=== PATIENT | male | born 1950 ===

== ENCOUNTER 2020-12-31 08:48 | Outpatient (REF) | payer MEDICARE, SELFPAY ==
--- NOTE | ~2020-12-31 | XR_ITS ---
EXAMINATION: KNEE X-RAY CLINICAL INFORMATION: Pain COMPARISON: None TECHNIQUE: Standing AP view of both knees and lateral and sunrise view of left knee FINDINGS: Left: Bone alignment is normal. No fracture or dislocation is seen. There is arthritis at the patellofemoral joint. There is no joint effusion. Standing AP view of the right knee is unremarkable. XR/XR knee standing BI IMPRESSION: Left knee: Arthritis at the patellofemoral joint.
--- NOTE | ~2020-12-31 | XR_ITS ---
EXAMINATION: KNEE X-RAY CLINICAL INFORMATION: Pain COMPARISON: None TECHNIQUE: Standing AP view of both knees and lateral and sunrise view of left knee FINDINGS: Left: Bone alignment is normal. No fracture or dislocation is seen. There is arthritis at the patellofemoral joint. There is no joint effusion. Standing AP view of the right knee is unremarkable. XR/XR knee LT 2V IMPRESSION: Left knee: Arthritis at the patellofemoral joint.
== END 2020-12-31 08:49 | disposition home or self-care (01) ==
LOC: HO.HOSX 08:48
PROVIDERS: Visit Provider Physician Assistant
DX: M25.562 Pain in left knee (principal); M17.11 Unilateral primary osteoarthritis, right knee
CPT/HCPCS: 20610; 73560; 73565; J1040

== ENCOUNTER → 2021-02-04 13:24 | Outpatient (BNVA) | payer OTHER, MEDICARE, SELFPAY | PROVIDERS: PCP Nurse Practitioner Family; Visit Provider Physician Assistant ==